=== PATIENT | female | born 1995 | race African-American/Black ===

== ENCOUNTER 2019-12-15 19:14 | Emergency (ER) | payer OTHER ==
[~2019-12-15] VITALS: Ht 177.8 cm; Wt 176.0 kg
[2019-12-15] MEDS ORDERED: ALBUTEROL/IPRATROPIUM 2.5MG/0.5MG, 3 ML ONE (20:20)
[2019-12-15] MEDS ORDERED: ALBUTEROL/IPRATROPIUM 2.5MG/0.5MG, 3 ML NPPB ONE (20:30)
--- NOTE | 2019-12-15 20:33 | NUR ---
PT TO ROOM 25 PER PEDIS. PT C/O SOB AND DIFFICULTY TAKING A DEEP BREATH. COVID SWAB TAKEN BY , AND CXR COMPLETED. ORDER FOR DUONEB TREATMENT. STARTED BY RN WITH ALL INSTRUCTIONS. RN OBSERVES FROM OUTSIDE ROOM THAT PATIENT IS PERFORMING NEBULIZER CORRECTLY. WILL CONTINUE TO MONITOR.
--- NOTE | 2019-12-15 21:15 | NUR ---
DISCHARGE INSTRUCTIONS GIVEN TO PATIENT. PT VERBALIZES UNDERSTANDING OF ALL INSTRUCTIONS AND FOLLOW UP. PT VERBALIZES UNDERSTANDING OF MEDICATIONS, AND HOW TO TAKE. PT AMBULATED OUT OF ED PER PEDIS.
[2019-12-15 21:16] VITALS: BP 138/58
== END 2019-12-15 21:18 | disposition home or self-care (01) ==
LOC: ED 19:52
DX: J20.8 Acute bronchitis due to other specified organisms (principal); Z20.828 Contact with and (suspected) exposure to other viral communicable diseases; J45.909 Unspecified asthma, uncomplicated; B97.89 Other viral agents as the cause of diseases classified elsewhere; R05 Cough; R07.89 Other chest pain
CPT/HCPCS: 71045; 94640; 99284; U0001

== ENCOUNTER 2019-12-25 00:14 | Emergency (ER) | payer OTHER ==
[~2019-12-25] VITALS: Ht 177.8 cm; Wt 178.0 kg
[2019-12-25 00:18] VITALS: BP 143/63
--- NOTE | 2019-12-25 00:33 | NUR ---
This is a 24 yo female coming with c/o coughing up a little blood in mucous. Patient was seen here last week for cough, negative COVID test, sent home with Dx acute bronchitis. Patient states coughing has gotten a little better, but saw blood in mucous coughed up today. Also c/o congestion and IBARRA related to coughing and congestion. Lung sounds clear throughout, patient not coughing at this time. Spo2 monitor in place, VSJESSICA Casiano, call light in reach.
--- NOTE | 2019-12-25 01:58 | NUR ---
Patient given discharge instructions and they have confirmed that they understand the instructions. Patient ambulatory with steady gait.
== END 2019-12-25 01:59 | disposition home or self-care (01) ==
LOC: ED 00:38
DX: R05 Cough (principal)
CPT/HCPCS: 71045; 99283